=== PATIENT | female | born 1945 | race African-American/Black ===

== ENCOUNTER 2024-09-10 13:31 | Emergency (ER) | payer OTHER ==
[~2024-09-10] VITALS: Ht 167.6 cm; Wt 100.0 kg
[2024-09-10 13:32] VITALS: TEMP 97.1; O2SAT 99
[2024-09-10] MEDS ORDERED: PRADAXA (13:37)
[2024-09-10] MEDS: MORPHINE SULFATE 4 MG/ML INJ (FOR IV/IM USE) IV STA (14:10)
[2024-09-10] MEDS: ONDANSETRON HCL 4MG/2ML INJ IV STA (14:10)
[2024-09-10] MEDS: SODIUM CHLORIDE 0.9% 1,000 ML IV ONE (14:15)
[2024-09-10 15:29] LABS: CHLORIDE 103 mEq/L (98-107); POTASSIUM 3.9 mEq/L (3.5-5.1); SODIUM 137 mEq/L (136-145)
[2024-09-10 15:30] LABS: CALCIUM 8.7 mg/dL (8.7-10.4); CARBON DIOXIDE 31 mEq/L (21-32)
[2024-09-10 15:33] LABS: BASOPHILS % 0.5 % (0.0-2.0); EOSINOPHILS % 1.3 % (0.0-5.0); HEMATOCRIT. 40.8 % (36.0-48.0); HEMOGLOBIN. 13.3 g/dL (12.0-16.0); LYMPHOCYTES % 12.6 % (20.0-50.0); MEAN CORPUSCULAR HEMOGLOBIN 30.3 pg (28.0-32.0); MEAN CORPUSCULAR HGB CONC 32.6 g/dL (31.0-37.0); MEAN CORPUSCULAR VOLUME 92.9 fL (81.0-99.0); MEAN PLATELET VOLUME 10.6 fl (7.4-10.4); MONOCYTES % 12.5 % (2.0-8.0); NEUTROPHILS % 73.1 % (40.0-76.0); PLATELET 191 x1000/uL (130-400); RED CELL DISTRIBUTION WIDTH 13.1 % (11.6-14.6); WHITE BLOOD COUNT 8.3 x1000/uL (4.5-11.0)
[2024-09-10 15:35] LABS: CREATININE 0.7 mg/dL (0.6-1.0); GLUCOSE 113 mg/dL (70-105); PARTIAL THROMBOPLASTIN TIME 33.1 sec (23.4-31.0); PROTHROMBIN TIME 10.9 sec (9.6-11.0); UREA NITROGEN BLOOD 13 mg/dL (9-23)
[2024-09-10 15:37] LABS: ALANINE AMINOTRANSFERASE 35 IU/L (10-49); ALBUMIN 3.3 g/dL (3.2-4.8); ASPARTATE AMINOTRANSFERASE 44 IU/L (<34); BILIRUBIN DIRECT 0.3 mg/dL (<=3.0); BILIRUBIN TOTAL 0.8 mg/dL (0.1-1.0); PROTEIN TOTAL 6.7 g/dL (6.0-8.3); TROPONIN I HIGH SENSITIVITY 13 ng/L (3.0-34)
[2024-09-10 17:14] LABS: CLARITY URINE CLEAR (CLEAR); COLOR URINE DARK YELLOW (YELLOW); GLUCOSE URINE NEGATIVE (NEGATIVE); KETONES URINE 1+ (NEGATIVE); LEUKOCYTE ESTERASE URINE 2+ (NEGATIVE); NITRITE URINE NEGATIVE (NEGATIVE); OCCULT BLOOD URINE 2+ (NEGATIVE); PROTEIN URINE 1+ (NEGATIVE); SPECIFIC GRAVITY URINE 1.017 (1.005-1.030); UROBILINOGEN URINE >8.0 E.U./dL (0.2-1.0)
[2024-09-10] MEDS: CEFTRIAXONE 1GM/50ML 50 ML IV ONE (17:22)
[2024-09-10 18:12] LABS: SQUAMOUS EPITHELIAL CELL URINE FEW /lpf (RARE/1+)
[2024-09-10 18:13] LABS: BACTERIA URINE 1+
[2024-09-10 18:51] VITALS: BP 158/70; PULSE 72; RESP 19; O2SAT 99
== END 2024-09-10 19:23 | disposition short-term general hospital (02) ==
LOC: ER 13:31
DX: I48.91 Unspecified atrial fibrillation (principal); I10 Essential (primary) hypertension; N39.0 Urinary tract infection, site not specified; R29.6 Repeated falls
CPT/HCPCS: 99285; 70450; 96365; 71045; 96361; 80076; 80048; 81003; 83880; 85025; 85610; 85730; 87086; 84484; 36415; 73030; 72192; 73700; 93005; J0696; J7030